=== PATIENT | female | born 1990 | race Two or more races ===

== ENCOUNTER 2024-11-03 12:29 | Emergency (ER) | payer OTHER ==
[~2024-11-03] VITALS: Ht 157.5 cm; Wt 69.9 kg
[2024-11-03 16:15] LABS: BASO % 0.3 % (0.1-1.2); EOS # 0.04 (0.04-0.54); EOS % 0.2 % (0.7-7.0); HEMATOCRIT 39.4 % (34.1-44.9); HEMOGLOBIN 13.1 g/dL (11.2-15.7); LYMPH # 2.05 (1.18-3.74); LYMPH % 11.8 % (19.3-53.1); MEAN CORPUSCULAR HEMOGLOBIN 30.1 pg (25.6-32.2); MONO # 1.42 (0.24-0.82); MONO % 8.2 % (4.7-12.5); NEUT # 13.73 (1.56-6.13); NEUT % 79.2 % (34.0-71.1); PLATELET COUNT 341 K/uL (163-369); RED BLOOD COUNT 4.35 M/uL (3.93-5.22); RED CELL DISTRIBUTION WIDTH 13.9 % (11.6-14.4)
[2024-11-03 16:38] LABS: ALBUMIN 3.9 gm/dL (3.4-5.0); BILIRUBIN TOTAL 0.36 mg/dL (0.3-1.2); CALCIUM 9.1 mg/dL (8.5-10.1); CREATININE SERUM 0.73 mg/dL (0.55-1.02); GFR 92.39; GLOBULINA 4.4 G/DL (2.4-3.5); POTASSIUM 3.93 mEq/L (3.5-5.1); TOTAL PROTEIN 8.3 gm/dL (6.4-8.2)
[2024-11-03 16:57] LABS: COVID-19 AG NEGATIVE (NEGATIVE)
[2024-11-03 17:10] LABS: INFLUENZA A AG NEGATIVE (NEGATIVE)
[2024-11-03] MEDS ORDERED: CEFTRIAXONE SODIUM 1,000 MG VIAL IM STA (19:08)
[2024-11-03] MEDS ORDERED: CEFTRIAXONE SODIUM 1,000 MG VIAL ONE (19:09)
[2024-11-03] MEDS ORDERED: AMOX-CLAV 875-1 EACH PO (19:14)
== END 2024-11-03 19:18 | disposition home or self-care (01) ==
LOC: ER 12:29
PROVIDERS: Preventive Medicine Public Health & General Preventive Medicine
DX: H66.90 Otitis media, unspecified, unspecified ear (principal); Z20.822 Contact with and (suspected) exposure to COVID-19

== ENCOUNTER 2024-12-01 18:47 | Emergency (ER) | payer OTHER ==
[~2024-12-01] VITALS: Ht 157.5 cm; Wt 68.0 kg
[~2024-12-01 18:47] MED LIST: AMOX-CLAV 875-1 EACH PO
[2024-12-01] MEDS ORDERED: BUTALB/ACETAMINOPHEN/CAFFEINE 1 TAB TABLET PO STA (19:27)
[2024-12-01] MEDS ORDERED: BUTALB/ACETAMINOPHEN/CAFFEINE 1 TAB TABLET PO ONE (19:37)
[2024-12-01 20:13] LABS: BASO % 0.6 % (0.1-1.2); EOS # 0.15 (0.04-0.54); EOS % 0.9 % (0.7-7.0); HEMATOCRIT 37.6 % (34.1-44.9); HEMOGLOBIN 12.6 g/dL (11.2-15.7); LYMPH # 2.23 (1.18-3.74); LYMPH % 12.9 % (19.3-53.1); MEAN CORPUSCULAR HEMOGLOBIN 29.6 pg (25.6-32.2); MONO # 1.21 (0.24-0.82); NEUT # 13.52 (1.56-6.13); NEUT % 78.1 % (34.0-71.1); PLATELET COUNT 367 K/uL (163-369); RED BLOOD COUNT 4.25 M/uL (3.93-5.22); RED CELL DISTRIBUTION WIDTH 13.6 % (11.6-14.4)
[2024-12-01 20:53] LABS: ALBUMIN 3.6 gm/dL (3.4-5.0); BILIRUBIN TOTAL 0.2 mg/dL (0.3-1.2); CALCIUM 9.4 mg/dL (8.5-10.1); CREATININE SERUM 0.72 mg/dL (0.55-1.02); GFR 93.87; GLOBULINA 4.1 G/DL (2.4-3.5); POTASSIUM 4.08 mEq/L (3.5-5.1); TOTAL PROTEIN 7.7 gm/dL (6.4-8.2)
[2024-12-01 20:57] LABS: COVID-19 AG NEGATIVE (NEGATIVE)
[2024-12-01 21:07] LABS: INFLUENZA A AG NEGATIVE (NEGATIVE); INFLUENZA B AG NEGATIVE (NEGATIVE)
[2024-12-01] MEDS ORDERED: NASONEX 24HR AL17 ML NASAL (21:17)
== END 2024-12-02 00:18 | disposition home or self-care (01) ==
LOC: ER 18:47
PROVIDERS: Preventive Medicine Public Health & General Preventive Medicine
DX: J32.9 Chronic sinusitis, unspecified (principal); Z20.822 Contact with and (suspected) exposure to COVID-19

== ENCOUNTER 2025-03-11 10:57 | Emergency (ER) | payer OTHER ==
[~2025-03-11] VITALS: Ht 157.5 cm; Wt 69.9 kg
[~2025-03-11 10:57] MED LIST changes: +NASONEX 24HR AL17 ML NASAL
[2025-03-11] MEDS ORDERED: ONDANSETRON HCL 2 MG/ML VIAL IV ONE (14:00)
[2025-03-11] MEDS ORDERED: 0.9 % SODIUM CHLORIDE 500 ML IV ONE (14:00)
[2025-03-11] MEDS ORDERED: FAMOtidine 10 MG/ML (4ML VIAL) IV ONE (14:00)
[2025-03-11] MEDS ORDERED: ONDANSETRON HCL 2 MG/ML VIAL ONE (14:10)
[2025-03-11] MEDS ORDERED: FAMOTIDINE/PF 20 MG/2 ML VIAL ONE (14:11)
[2025-03-11 15:02] LABS: BASO % 0.7 % (0.1-1.2); EOS # 0.05 (0.04-0.54); EOS % 0.9 % (0.7-7.0); LYMPH # 0.91 (1.18-3.74); LYMPH % 15.8 % (19.3-53.1); MEAN PLATELET VOLUME 9.70 fl (9.4-12.4); MONO # 0.62 (0.24-0.82); MONO % 10.7 % (4.7-12.5); NEUT # 4.14 (1.56-6.13); NEUT % 71.7 % (34.0-71.1); RED CELL DISTRIBUTION WIDTH 13.4 % (11.6-14.4)
[2025-03-11 15:06] LABS: URINE APPEARANCE Clear; URINE BILIRRUBIN Negative (NEGATIVE); URINE BLOOD Small; URINE COLOR Yellow; URINE GLUCOSE Negative (NEGATIVE); URINE KETONE Negative (NEGATIVE); URINE LEUKOCYTE Negative; URINE NITRATE Negative; URINE PROTEIN Trace (NEGATIVE); URINE UROBILINOGEN 1.0 E.U./dl
[2025-03-11 15:10] LABS: URINE BACTERIA 244.7 uL (0.0-1933); URINE EPITHELIAL CELLS 23.5 uL (0.0-38.8); URINE RBC 40.0 uL (0.0-20.8); URINE WBC 12.0 uL (0.0-23.2)
[2025-03-11 15:29] LABS: ALT/SGPT 109.0 U/L (12-78); AST/SGOT 38.0 U/L (15-37); BILIRUBIN TOTAL 0.35 mg/dL (0.3-1.2); BUN CREA RATIO 16.0 (7.0-25.0); CREATININE SERUM 0.58 mg/dL (0.55-1.02); GFR 119.72; GLOBULINA 4.7 G/DL (2.4-3.5); GLUCOSE FASTING 89.0 mg/dL (65-100); OSMOLALITY SERUM 279.0 MOSM/KG (275-295)
[2025-03-11 15:30] LABS: URINE CAST 0.14 uL (0.0-1.40)
[2025-03-11] MEDS ORDERED: INTESTINEX680 M1 PO (20:54)
[2025-03-11] MEDS ORDERED: PEPCID AC20 MG PO (20:54)
== END 2025-03-11 21:57 | disposition home or self-care (01) ==
LOC: ER 10:58
PROVIDERS: Preventive Medicine Public Health & General Preventive Medicine
DX: K52.89 Other specified noninfective gastroenteritis and colitis (principal); R10.13 Epigastric pain; R11.10 Vomiting, unspecified

== ENCOUNTER 2025-05-10 15:05 | Emergency (ER) | payer OTHER ==
[~2025-05-10] VITALS: Ht 157.5 cm; Wt 67.1 kg
[~2025-05-10 15:05] MED LIST changes: +INTESTINEX680 M1 PO; +PEPCID AC20 MG PO
[2025-05-10] MEDS ORDERED: CETIRIZINE HCL 5 MG/5 ML ML PO ONE (18:15)
[2025-05-10 20:06] LABS: BASO % 0.6 % (0.1-1.2); EOS # 0.18 (0.04-0.54); EOS % 1.7 % (0.7-7.0); LYMPH # 2.31 (1.18-3.74); LYMPH % 21.2 % (19.3-53.1); MEAN PLATELET VOLUME 9.20 fl (9.4-12.4); MONO # 0.82 (0.24-0.82); MONO % 7.5 % (4.7-12.5); NEUT # 7.50 (1.56-6.13); NEUT % 68.7 % (34.0-71.1); RED CELL DISTRIBUTION WIDTH 13.2 % (11.6-14.4)
[2025-05-10 20:22] LABS: COVID-19 AG NEGATIVE (NEGATIVE)
[2025-05-10] MEDS ORDERED: ZITHROMAX500 MG PO (21:31)
[2025-05-10] MEDS ORDERED: [UNRECOGNIZED DRUG - OTHER] PO (21:31)
[2025-05-10] MEDS ORDERED: ZYRTEC10 MG PO (21:31)
== END 2025-05-10 22:02 | disposition home or self-care (01) ==
LOC: ER 15:06
PROVIDERS: General Practice
DX: J06.9 Acute upper respiratory infection, unspecified (principal); J00 Acute nasopharyngitis [common cold]; R05.8 Other specified cough; R51.9 Headache, unspecified; Z20.822 Contact with and (suspected) exposure to COVID-19